=== PATIENT | male | born 1995 | race American Indian/Alaskan Native ===

== ENCOUNTER 2017-12-20 21:54 | Emergency (ER) | payer SELFPAY ==
[2017-12-20] MEDS ORDERED: TYLENOL PO ONE (22:50)
[2017-12-20] MEDS ORDERED: TYLENOL ONE (22:51)
[2017-12-20] MEDS ORDERED: NACL 0.9% 500 ML 500 ML IV ONE (23:00)
[2017-12-20 23:21] LABS: Basophils % (Auto) 0.3 % (0.0-1.8); Eosinophils # (Auto) 0.9 K/mm3 (0.0-0.4); Eosinophils % (Auto) 7.9 % (0.0-4.3); Hematocrit 43.7 % (35.5-45.6); Hemoglobin 14.9 gm/dl (11.8-15.2); Lymphocytes % (Auto) 8.5 % (13.4-35.0); Mean Corpuscular HGB Conc 34 % (32-34); Mean Corpuscular Hemoglobin 30 pg (28-32); Mean Corpuscular Volume 88 fl (84-94); Monocytes # (Auto) 0.9 K/mm3 (0.0-0.8); Monocytes % (Auto) 7.5 % (0.0-7.3); Red Blood Count 4.95 M/mm3 (3.65-5.03); Red Cell Distribution Width 12.6 % (13.2-15.2)
[2017-12-20 23:28] LABS: Platelet Count 213 K/mm3 (140-440)
[2017-12-20 23:32] LABS: INR 0.97 (0.87-1.13)
--- NOTE | 2017-12-20 23:33 | XRay Report ---
FINAL REPORT PROCEDURE: XR CHEST 1V AP TECHNIQUE: Chest radiograph anteroposterior view. CPT 20934 HISTORY: possible Sepsis COMPARISON: No prior studies are available for comparison. FINDINGS: Heart: Normal. Mediastinum/Vessels: Normal. Lungs/Pleural space: Normal. Bony thorax: No acute osseous abnormality. Life support devices: None. IMPRESSION: No acute cardiopulmonary abnormality.
[2017-12-20 23:35] LABS: Alanine Aminotransferase 30 units/L (7-56); BUN/Creatinine Ratio 5; Blood Urea Nitrogen 5 mg/dL (9-20); Calcium 9.5 mg/dL (8.4-10.2); Hemolysis Index 19
[2017-12-21] MEDS ORDERED: XOPENEX IH ONE (00:57)
[2017-12-21] MEDS ORDERED: ATROVENT IH ONE (00:57)
--- NOTE | 2017-12-21 01:02 | Emergency Department Report ---
ED General Adult HPI - General Chief complaint: Upper Respiratory Infection Stated complaint: FEVER Time Seen by Provider: 12/21/17 00:53 Source: patient Mode of arrival: Ambulatory Limitations: No Limitations - History of Present Illness Initial comments: Patient is 22 years old male with no significant past medical history. Patient presented to the ER complaining off cough, productive with greenish sputum associated with fever and shortness of breath and tightness in his chest. Patient stated no symptoms edema, 2-3 days. He admitted that he's been having this issue for a while, it comes and goes he'll take some cold medicine and it will go away. Patient stated that he never been diagnosed with asthma. - Related Data Previous Rx's Medication Instructions Recorded Last Taken Type Pantoprazole [Protonix INJ] 40 mg PO DAILY #30 vial 06/04/13 Unknown Rx Allergies Allergy/AdvReac Type Severity Reaction Status Date / Time No Known Allergies Allergy Unverified 06/03/13 16:16 ED Review of Systems ROS: Stated complaint: FEVER Other details as noted in HPI Comment: All other systems reviewed and negative Constitutional: fever. denies: chills Respiratory: cough, shortness of breath, wheezing. denies: orthopnea, SOB with exertion, SOB at rest Gastrointestinal: denies: abdominal pain, nausea, vomiting, diarrhea, constipation, hematemesis, hematochezia Neurological: denies: headache, weakness, numbness, paresthesias, abnormal gait ED Past Medical Hx - Past Medical History Previous Medical History?: Yes Hx Congestive Heart Failure: No Hx Diabetes: No Hx Asthma: No Hx COPD: No Additional medical history: stomach ulcer x2 - Surgical History Past Surgical History?: Yes Additional Surgical History: L leg fx/sx, 2009. tanisha in L leg - Social History Smoking Status: Never Smoker Substance Use Type: Alcohol - Medications Home Medications: Home Medications Medication Instructions Recorded Confirmed Last Taken Type Pantoprazole [Protonix INJ] 40 mg PO DAILY #30 vial 06/04/13 Unknown Rx ED Physical Exam - General Limitations: No Limitations General appearance: alert, in no apparent distress - Head Head exam: Present: atraumatic, normocephalic, normal inspection - Eye Eye exam: Present: normal appearance - ENT ENT exam: Present: normal exam, normal orophraynx, mucous membranes moist - Neck Neck exam: Present: normal inspection, full ROM. Absent: tenderness, meningismus, lymphadenopathy, thyromegaly - Respiratory Respiratory exam: Present: wheezes, rhonchi, prolonged expiratory. Absent: respiratory distress, rales, stridor, accessory muscle use, decreased breath sounds - Cardiovascular Cardiovascular Exam: Present: regular rate, normal rhythm, normal heart sounds - GI/Abdominal GI/Abdominal exam: Present: soft, normal bowel sounds. Absent: distended, tenderness, guarding, rebound, rigid, organomegaly, mass, bruit, pulsatile mass , hernia - Extremities Exam Extremities exam: Present: normal inspection, full ROM, normal capillary refill - Back Exam Back exam: Present: normal inspection, full ROM. Absent: tenderness, CVA tenderness (R), CVA tenderness (L) - Neurological Exam Neurological exam: Present: alert, oriented X3, CN II-XII intact, normal gait, reflexes normal - Skin Skin exam: Present: warm, intact, normal color ED Course Vital Signs 12/20/17 22:46 Temperature 102.8 F H Pulse Rate 105 H Respiratory 18 Rate Blood Pressure 128/71 O2 Sat by Pulse 100 Oximetry ED Medical Decision Making - Lab Data Result diagrams: 12/20/17 23:07 12/20/17 23:07 - Radiology Data Radiology results: report reviewed Chest x-ray is unremarkable. Critical care attestation.: If time is entered above; I have spent that time in minutes in the direct care of this critically ill patient, excluding procedure time. ED Disposition Clinical Impression: Asthmatic bronchitis Disposition: DC-01 TO HOME OR SELFCARE Is pt being admited?: No Condition: Stable Instructions: Chronic Bronchitis (ED), Asthma (ED) Referrals: PRIMARY CARE, [Primary Care Provider] - 3-5 Days
[2017-12-21 02:33] VITALS: BP 120/75
== END 2017-12-21 02:33 | disposition home or self-care (01) ==
LOC: ED 21:54
DX: J45.909 Unspecified asthma, uncomplicated (principal)
CPT/HCPCS: 36415; 71045; 80053; 82140; 82805; 85025; 85610; 87040; 94640; 96372; 99284; J2930